=== PATIENT | female | born 1960 | race African-American/Black ===

== ENCOUNTER 2019-06-03 07:46 | Day surgery (SDC) | payer OTHER ==
[2019-06-03] VITALS (13 sets, daily range): BP systolic 99–141; BP diastolic 61–88; PULSE 66–90; RESP 12–19; Ht 162.6 cm; Wt 96.7 kg
[~2019-06-03] VITALS: Ht 162.6 cm; Wt 96.7 kg
[~2019-06-03 07:46] MED LIST: CEFAZOLIN 1 GM/50 ML (PMX) 50 ML IVPB SCH; SOD CHLORIDE 0.9% 1,000 ML IV SCH
[2019-06-03] MEDS ORDERED: DIPHENHYDRAMINE 50 MG INJ IV PRN (13:30)
[2019-06-03] MEDS ORDERED: MEPERIDINE 25 MG INJ IV PRN (13:30)
[2019-06-03] MEDS ORDERED: HYDROmorphONE 1 MG/5 ML IV SYRINGE IV PRN ×3 (13:30)
[2019-06-03] MEDS ORDERED: METOCLOPRAMIDE 10 MG INJ IV PRN (13:30)
[2019-06-03] MEDS ORDERED: OXYCODONE/ACETAMINOPHEN (5/325) TAB PO PRN (13:30)
[2019-06-03] MEDS ORDERED: FENTAnyl 50 MCG/ML VIAL IV PRN ×3 (13:30)
[2019-06-03] MEDS ORDERED: ONDANSETRON 4 MG INJ IV PRN (13:30)
[2019-06-03] MEDS ORDERED: DESFLURANE 15 MIN ONE (13:35)
[2019-06-03] MEDS ORDERED: PHENYLephrine (100 MCG/ML) 10ML SYG ONE (13:35)
[2019-06-03] MEDS ORDERED: MIDAZOLAM 1 MG/ML 2 ML INJ ONE (13:36)
[2019-06-03] MEDS ORDERED: ROCURONIUM 50 MG INJ ONE (13:36)
[2019-06-03] MEDS ORDERED: PROPOFOL 20 ML ONE (13:36)
[2019-06-03] MEDS ORDERED: CEFAZOLIN 1 GM INJ ONE (13:36)
[2019-06-03] MEDS ORDERED: LIDOCAINE 1% (MPF) 30 ML INJ ONE (13:39)
[2019-06-03] MEDS ORDERED: METOCLOPRAMIDE 10 MG INJ ONE (14:30)
[2019-06-03] MEDS ORDERED: DEXAMETHASONE 4 MG/ML 5 ML INJ ONE (14:30)
[2019-06-03] MEDS ORDERED: KETOROLAC 30 MG INJ ONE (14:30)
[2019-06-03] MEDS ORDERED: SUGAMMADEX SODIUM 200 MG/2 ML VIAL IV ONE (14:30)
[2019-06-03] MEDS ORDERED: ONDANSETRON 4 MG INJ ONE (14:30)
== END 2019-06-03 17:00 | disposition home or self-care (01) ==
LOC: SDS 07:46
PROVIDERS: ATTEND Surgery
DX: D05.11 Intraductal carcinoma in situ of right breast (principal); E66.9 Obesity, unspecified; R94.31 Abnormal electrocardiogram [ECG] [EKG]
CPT/HCPCS: 19301; 71045; 88309; 93005; J0690; J1100; J1170; J1885; J2250; J2405; J2765; J3010; J7030; 88361; 88374; J2370